=== PATIENT | male | born 1950 | race Caucasian/White ===

== ENCOUNTER → 2016-12-20 | Outpatient (CLI) | payer MEDICARE ==
[~2016-12-20] MED LIST: AMLO10TA2 PO; ESCI10TA10 PO; FLUT16SP NS; LISI5TAB7 PO; MULT-658 PO; OMEP40CA6 PO; OMNIPAQUE 350 MG/ML, 100ML BOTTLE ONE; OXYC5CAP4 PO; SILD50TA PO; TENO300T2 PO; TRAZ50TA18 PO
== END | disposition home or self-care (01) ==
LOC: RAD 07:55 → EDSTATUS 13:45
PROVIDERS: ATTEND Internal Medicine Cardiovascular Disease
DX: I71.9 Aortic aneurysm of unspecified site, without rupture (principal); I70.0 Atherosclerosis of aorta; N28.1 Cyst of kidney, acquired; Z95.0 Presence of cardiac pacemaker
CPT/HCPCS: 71275; Q9967

== ENCOUNTER → 2019-09-03 | Outpatient (CLI) | payer MEDICARE ==
[~2019-09-03] MED LIST changes: -AMLO10TA2 PO; +AMLO10TA8 PO; -FLUT16SP NS; +FLUT16SP24 NS; +OMEP40CA42 PO; -OMEP40CA6 PO; -OMNIPAQUE 350 MG/ML, 100ML BOTTLE ONE; +OXYC5CAP2 PO; -OXYC5CAP4 PO; +REGADENOSON 0.4 MG/5 ML SYRINGE ONE; -TENO300T2 PO; +TENO300T5 PO; -TRAZ50TA18 PO; +TRAZ50TA66 PO
== END | disposition home or self-care (01) ==
LOC: CFH 11:01
PROVIDERS: ATTEND Nurse Practitioner Family
DX: I08.2 Rheumatic disorders of both aortic and tricuspid valves (principal); I47.1 Supraventricular tachycardia; I11.9 Hypertensive heart disease without heart failure
CPT/HCPCS: 78452; 93017; 93306; 93356; A9502; J2785

== ENCOUNTER → 2021-01-13 | Outpatient (CLI) | payer MEDICARE ==
[~2021-01-13] MED LIST changes: +AMLO-211 PO; -AMLO10TA8 PO; -OMEP40CA42 PO; +OMEP40CA8 PO; -REGADENOSON 0.4 MG/5 ML SYRINGE ONE
== END | disposition home or self-care (01) ==
LOC: CFH 10:10
PROVIDERS: ATTEND Internal Medicine
DX: Z12.2 Encounter for screening for malignant neoplasm of respiratory organs (principal); I77.810 Thoracic aortic ectasia; I25.10 Atherosclerotic heart disease of native coronary artery without angina pectoris; J84.10 Pulmonary fibrosis, unspecified; F17.211 Nicotine dependence, cigarettes, in remission
CPT/HCPCS: 71271